=== PATIENT | male | born 2000 | race Caucasian/White ===

== ENCOUNTER → 2021-04-11 15:32 | Outpatient (CLI) | payer BC, SELFPAY ==
--- NOTE | ~2021-04-11 | US_ITS ---
US thyroid INDICATION: Thyroid nodule TECHNIQUE: Real-time sonographic images of the thyroid gland were obtained. COMPARISON: No prior studies for comparison. FINDINGS: The right thyroid lobe measures 5.5 x 1.3 x 1.3 cm. The left thyroid lobe measures 3.8 x 1 .2 x 1.6 cm. There is normal echotexture and echogenicity throughout the thyroid gland. There are mul tiple small left thyroid nodules, measuring 3 mm or less, likely benign. Right thyroid echotexture is normal. IMPRESSION: 1. Multiple small hypoechoic left thyroid nodules with echogenic centers measuring 3 mm or less, lik shonna benign. Reviewed, dictated and finalized at location A. IMPRESSION: 1. Multiple small hypoechoic left thyroid nodules with echogenic centers measu ring 3 mm or less, likely benign.
== END ==
PROVIDERS: Visit Provider Nurse Practitioner
DX: E04.2 Nontoxic multinodular goiter (principal)
CPT/HCPCS: 76536